=== PATIENT | male | born 1970 | race Caucasian/White ===

== ENCOUNTER 2023-03-27 20:38 | Emergency (ER) | payer BC, SELFPAY ==
[2023-03-27 20:39] VITALS: BP 177/108
--- NOTE | 2023-03-27 20:55 | ED.GENMED ---
History of Present Illness
General
Chief Complaint: Blood Pressure Problem
Time Seen by Provider: 03/27/23 20:52
Travel History
Have you had any contact with someone who has COVID-19?: No
Do you have any symptoms of coronavirus? Fever > 100 degrees, chills, cough, shortness of breath, sore throat, loss of taste or smell, muscle aches, or headache?: No
History of Present Illness
History of Present Illness:
52-year-old male with history of hypertension presents to the emergency department for evaluation of elevated blood pressure for the past week, dramatically worsened today. Notes he is positive for COVID 8 days ago. Had a headache today but denies
any symptoms at the current moment. Specifically denies chest pain, shortness of breath, nausea, vomiting, or dizziness. He did take his medications today. Noted blood pressures exceeding 200/100 earlier today
Past History
Past History
ED Past Medical History: HTN
ED Past Surgical History: Orthopedic
Social History
Tobacco: Non-smoker
Living: with family
Review of Systems
Review of Systems
Allergies reviewed?: Yes
All Other Systems: ROS reviewed and negative except as documented in HPI and ROS
Phy Exam
Physical Exam
Physical Exam:
GEN: Well appearing, NAD, WDWN
HEENT: Oral mucosa moist, no scleral icterus, no nasal congestion
Cardiac: Regular rate and rhythm, no murmurs
Lung: No respiratory distress, no tachypnea
MSK: No gross deformity or injuries
Skin: Good color, no pallor or jaundice, no rashes
Neuro: AO x3; CN II-XII grossly intact. BUE strength 5/5 in all yanes, sensation intact and symmetric. BLE strength 5/5 in all yanes, sensation intact and symmetric
Psych: Calm, cooperative
Course
Orders/Labs/Results
Orders:
Orders
03/27/23 21:27
Electrocardiogram (*1) Urgent
Reason for Study: Tachycardia
EKG- Treatment ONCE
03/27/23 21:33
Basic Metabolic Panel Urgent
Complete Blood Count/With Diff Urgent
Abnormal Lab Results
03/27/23
21:33
Absolute Monos (auto) 0.7 H 10^3/uL
(0.1-0.6)
Monocytes % 9.6 H %
(1.7-9.3)
BUN 21 H mg/dl
(9-20)
Glucose 138 H mg/dl
(70-99)
03/27/23 21:33
03/27/23 21:33
Vital Signs
Initial and Last Documented VS:
Initial Vital Signs
Temp Pulse Resp BP Pulse Ox
98.4 F 106 22 177/108 98
03/27/23 20:39 03/27/23 20:39 03/27/23 20:39 03/27/23 20:39 03/27/23 20:39
Last Documented Vital Signs
Temp Pulse Resp BP Pulse Ox
98.4 F 94 19 157/94 95
03/27/23 20:39 03/27/23 22:00 03/27/23 22:00 03/27/23 22:00 03/27/23 22:00
MDM/Problems Addressed
MDM/Problems Addressed:
Patient's blood pressure gradually trending down emergency department. Labs were obtained due to the recency of his COVID diagnosis as this is a highly inflammatory disease however there is no evidence for endorgan damage at this juncture and no
indication for urgent blood pressure lowering. Patient has a follow-up with his primary care for routine physical next week and this will be a good time to discuss any further blood pressure medications as needed
Comment
Comment:
EKG independently interpreted by me shows a normal sinus rhythm at a rate of [address] changes concerning for ischemia
*Critical Care Note
Total Time (30-74mins, 75-104mins- exclusive of procedures): Not Applicable
ED Attending Note
-
Portions of this chart may have been created with voice recognition software.� Occasional wrong word or��sound alike� substitutions may have occurred due to the inherent limitations of voice recognition software.
Discharge Plan
Departure
Patient Disposition: Home (Routine Discharge)
Date of Disposition: 03/27/23
Time of Disposition: 21:58
Patient with high blood pressure during this ER visit?: No
Discharge Problem:
Elevated blood pressure reading
Instructions: High Blood Pressure (DC)
Prescriptions:
No Action
Bp Pill-Betablocker
1 PO DAILY
allopurinol 100 MG tablet
100 mg PO BID
Second Blood Pressure Pill
1 tab PO DAILY
Activity Restrictions/Additional Instructions:
Follow up with your primary doctor next week regarding your blood pressure
Interventions
Interventions:
*Risk Screen - Suicide Last Done: 03/27/23 20:39
*General Assessment Last Done: 03/27/23 21:41
*Neglect/Abuse Screening Last Done: 03/27/23 20:39
ED- Fall Risk Assessment Last Done: 03/27/23 22:04
*ED COVID-19 Vaccine History Last Done: 03/27/23 21:41
*Nursing Disposition Last Done: 03/27/23 22:04
ED- Cardiac Assessment Last Done: 03/27/23 21:39
ED- Neurological Assessment Last Done: 03/27/23 21:39
ED- Pulmonary Assessment Last Done: 03/27/23 21:39
Discharge Date and Time
Discharge Date/Time: 03/27/23 22:08
[2023-03-27 21:32] VITALS: BP 149/74
[2023-03-27 21:41] LABS: % Basophils 0.6 % (0-2); % Eosinophils 2.7 % (0-6); % Immature Granulocytes 0.4 % (0-0.5); % Lymphocytes 38.9 % (20.5-51.1); % Monocytes 9.6 % (1.7-9.3); % Neutrophils 47.8 % (42.2-75.2); Absolute Basophils 0.1 10^3/uL (0-0.2); Absolute Eosinophils 0.2 10^3/uL (0-0.7); Absolute Monocytes 0.7 10^3/uL (0.1-0.6); Absolute Neutrophils 3.7 10^3/uL (1.4-6.5); Hematocrit 40.9 % (39.0-52.0); Hemoglobin 14.8 g/dL (13.0-18.0); Mean Corp Hgb Conc. 36.2 g/dL (33.0-37.0); Mean Corpuscular Hgb 30.2 pg (27.0-31.0); Mean Corpuscular Volume 83.5 fL (80.0-94.0); Mean Platelet Volume 9.9 fL (7.4-10.4); Nucleated Red Blood Cells % 0 % (-); Platelet Count 232 10^3/uL (130-400); Red Cell Dist. Width 12.6 % (11.5-14.5); White Blood Cell Count 7.7 10^3/uL (4.8-10.8)
[2023-03-27 21:55] LABS: Blood Urea Nitrogen 21 mg/dl (9-20); Calcium 9.5 mg/dl (8.4-10.2); Carbon Dioxide 30 mmol/L (22-30); Chloride 100 mmol/L (98-107); Glucose 138 mg/dl (70-99); Potassium 3.6 mmol/L (3.5-5.1); Sodium 138 mmol/L (135-145); eGFR > 60.00
[2023-03-27 22:00] VITALS: BP 157/94
== END 2023-03-27 22:08 | disposition home or self-care (01) ==
LOC: EMR 20:38
PROVIDERS: Physician Assistant; EMERGENCY PHYSICIAN Emergency Medicine; FAMILY PHYSICIAN Family Medicine
DX: I10 Essential (primary) hypertension (principal)
CPT/HCPCS: 99283; 80048; 85025; 93005

== ENCOUNTER → 2024-01-23 12:38 | Outpatient (REF) | payer BC, SELFPAY | LOC: RCS 12:38 | PROVIDERS: ATTENDING PHYSICIAN Internal Medicine; FAMILY PHYSICIAN Internal Medicine | DX: R00.2 Palpitations (principal) | CPT/HCPCS: 93017 ==

== ENCOUNTER → 2024-01-26 09:13 | Outpatient (REF) | payer BC, SELFPAY | LOC: RCS 09:13 | PROVIDERS: ATTENDING PHYSICIAN Internal Medicine; FAMILY PHYSICIAN Internal Medicine | DX: I10 Essential (primary) hypertension (principal) | CPT/HCPCS: 93306 ==

== ENCOUNTER → 2024-03-05 12:00 | Outpatient (REF) | payer BC, SELFPAY | LOC: DHSLP 12:00 | PROVIDERS: ATTENDING PHYSICIAN Internal Medicine Critical Care Medicine; FAMILY PHYSICIAN Internal Medicine | DX: G47.30 Sleep apnea, unspecified (principal); R06.83 Snoring | CPT/HCPCS: 95800 ==